=== PATIENT | female | born 1990 | race Caucasian/White ===

== ENCOUNTER 2016-12-23 18:11 | Emergency (ER) | payer SELFPAY ==
[~2016-12-23] VITALS: Ht 160 cm; Wt 51.2 kg
[2016-12-23 18:15] VITALS: BP 129/85; PULSE 125; TEMP 36.9; O2SAT 99; Ht 160 cm; Wt 51.2 kg
[2016-12-23] MEDS ORDERED: PENI-82 PO (18:47)
[2016-12-23] MEDS ORDERED: HYDR-5688 PO (18:47)
--- NOTE | 2016-12-23 18:48 | EMERGENCY ROOM VISIT NOTE ---
ED Visit Note First contact with patient: 18:20 CHIEF COMPLAINT: Toothache HISTORY OF PRESENT ILLNESS: This 26-year-old female patient presented to the emergency department ambulatory complaining of toothaches. She states she believes that her wisdom teeth are coming in, because she has pain in the back lower molars. She states she developed the pain 2 days ago. She rates the discomfort a 10/10. She has not been taking any medications at home for her symptoms. The patient denies any previous issues with her teeth. She does not have a dentist. The patient states she is concerned about a possible blood infection, because she looked it up on the Internet and it said that it can make you irritable. She states that she has been ureter GoLYTELY, and has also had a decreased appetite and a decreased sensation in the face and in the back of her legs. She states that she feels feverish, but has not taken her temperature. She denies any neck pain, facial swelling or drainage from the mouth. REVIEW OF SYSTEMS: A 6 system review of systems was completed with positives and pertinent negatives listed in the HPI. ALLERGIES: No known drug allergies MEDICATIONS: No chronic medications PMH: No significant past medical history. SOCIAL HISTORY: The patient lives locally with her boyfriend. She is a smoker. She denies alcohol use. PHYSICAL EXAM: Vitals are noted on the nurse's note and reviewed by myself. Vital signs stable. Temperature 36.9C orally. GENERAL: This is a 26-year-old female, in no acute distress, nondiaphoretic, well-developed well-nourished. Mouth: The bilateral lower wisdom teeth appear to be breaking through the gums. Mild edema of the surrounding gums. No signs of an abscess. The remainder of the pharynx and tonsils are without erythema, edema, or exudate. The airway is patent. There is no facial swelling, cervical or submandibular lymphadenopathy. The patient appears uncomfortable and in pain. The patient has overall poor dental hygiene. EARS: External auditory canals clear, tympanic membranes pearly schneider without erythema or effusion bilaterally. ED COURSE: The patient was evaluated as above. She is likely having pain due to her wisdom teeth coming in. There are no signs of obvious infection, but the patient will be placed on penicillin to prevent any infection. There is no facial swelling, lymphadenopathy or fevers to suggest a more severe infection. The patient was reassured. She will be given a short course of pain medication. The [place] Prescription drug monitoring program was queried and no red flags were identified. The patient will return for worsening symptoms and understands that she needs to follow-up with a dentist as soon as possible. She verbalized understanding and was discharged home in good condition. DIAGNOSIS: Odontalgia Current/Historical Medications Scheduled Penicillin V Potassium (Veetids), 500 MG PO QID Scheduled PRN Hydrocodone/Acetaminophen 5MG/325MG (Olar 5MG/325MG), 1-2 TABLET PO Q4H PRN for Pain Allergies Coded Allergies: No Known Allergies (Unverified , 03/24/13) Vital Signs Date Time Temp Pulse Resp B/P Pulse Ox O2 Delivery O2 Flow Rate FiO2 12/23/16 18:15 36.9 125 18 129/85 99 Room Air Departure Information Impression Primary Impression: Dentalgia Dispostion Home / Self-Care Condition GOOD Prescriptions Hydrocodone/Acetaminophen 5MG/325MG (Olar 5MG/325MG) Tab 1-2 TABLET PO Q4H Y for Pain, #15 TAB For Initial Treatment Prov: Soheila Moreland PA-C 12/23/16 Penicillin V Potassium (Veetids) 500 Mg Tab 500 MG PO QID, #40 TAB Prov: Soheila Moreland PA-C 12/23/16 Referrals No Doctor, Assigned (PCP) Patient Instructions My [facility] Additional Instructions You have been treated in the Emergency Department for Dental Pain. You have been prescribed Olar to be used for pain control. This is a narcotic medication. You cannot drive or consume alcohol while on this medicine. This medicine should only be used for pain that cannot be controlled with over-the- counter pain medicines. You were prescribed penicillin to be taken as prescribed. This is an antibiotic. All antibiotics have the potential to cause diarrhea. Stop this medication and contact a medical provider if you were to develop any significant adverse side effects including: wheezing, shortness of breath, passing out, vomiting, or a diffuse rash. Always take antibiotics as directed and COMPLETE the ENTIRE course regardless of the improvement of your symptoms. For pain control, you can use the following [id number] medicines (if >12 yo): - Regular strength (325mg/tab) Tylenol (acetaminophen) 2 tabs every 4-6 hours as needed. Do not exceed 12 tablets in a 24 hour period. Avoid taking more than 4 grams (4000 mg) of Tylenol per day. This includes any other sources of acetaminophen you may take on a regular basis. - Regular strength (200 mg/tab) Advil (ibuprofen) 1-2 tabs every 4-6 hours as needed. Do not exceed a dose of 3200 mg per day. Refrain from smoking cigarettes or using chewing tobacco until you have been evaluated by your dentist. Keeping beverages lukewarm and consuming soft foods can decrease your pain. Warm compresses over the affected area may offer some relief. You MUST seek evaluation of your dental pain by a dentist following your visit to the Emergency Department. The Emergency Department is not capable of treating dental issues long-term. You should call your dentist as soon as possible to make an appointment for evaluation of your dental pain. Return to the emergency department if you develop the following symptoms despite treatment course outlined above: fever, intractable pain, increased redness, swelling, or purulent discharge.
== END 2016-12-23 18:57 | disposition home or self-care (01) ==
LOC: C.EDB 18:12 → C.EDD 18:57
DX: K08.89 Other specified disorders of teeth and supporting structures (principal)